=== PATIENT | female | born 1940 | race Caucasian/White ===

== ENCOUNTER 2019-06-30 05:44 | Inpatient (IN) ==
--- NOTE | 2019-06-29 10:59 | EKG Report ---
Test Performed on : 06/29/2019 10:51:07 AM Test Reason : PAT Blood Pressure : / mmHG Vent. Rate : 062 BPM Atrial Rate : 062 BPM P-R Int : 132 ms QRS Dur : 080 ms QT Int : 394 ms P-R-T Axes : 000 016 028 degrees QTc Int : 399 ms Normal sinus rhythm. Normal ECG When compared with ECG of 26-MAR-2007 10:17, No significant change was found Confirmed by Danilo AVILES, Ezekiel ([id number]) on 06/30/2019 8:32:24 AM
[2019-06-29 11:44] LABS: HEMOGLOBIN 13.3 g/dL (12.0-16.0); MCH 28.9 PG (27-31); MCHC 31.7 g/dL (33-37); MCV 91.1 FL (81-99); MPV 10.9 FL (7.4-10.4); RBC 4.61 XMIL (4.2-5.4); RDW 13.9 % (11.5-14.5); WBC 10.05 X1000 (4.8-10.8)
[2019-06-29 11:58] LABS: CALCIUM 9.6 mg/dL (8.8-10.2); POTASSIUM 4.9 mmol/L (3.5-5.1)
[2019-06-29 12:05] LABS: ALB/GLOB RATIO 2.1; ALBUMIN 4.6 g/dL (3.5-5.0); DIRECT BILIRUBIN 0.1 mg/dL (0.00-0.20); TOTAL BILIRUBIN 0.46 mg/dL (0.20-1.00); TOTAL PROTEIN 6.8 g/dL (6.3-8.3)
[2019-06-30] MEDS ORDERED: KEFZOL 1 GM/D5W 1 GM/50 ML IVPB ONE (06:13)
[2019-06-30] MEDS ORDERED: LR 1,000 ML ONE ×2 (06:13→09:29)
[2019-06-30] MEDS ORDERED: TENORMIN ONE (06:23)
[2019-06-30] MEDS ORDERED: DIPRIVAN 1% ONE (06:28)
[2019-06-30] MEDS ORDERED: FENTANYL ONE (06:29)
[2019-06-30] MEDS ORDERED: XYLOCAINE-MPF 2% ONE (06:41)
[2019-06-30] MEDS ORDERED: QUELICIN (DOSE) ONE (06:44)
[2019-06-30] MEDS ORDERED: METHYLENE BLUE 0.5% ONE (06:46)
[2019-06-30] MEDS ORDERED: MARCAINE 0.25% PF ONE (06:46)
--- NOTE | 2019-06-30 07:38 | Diag Imaging Result Doc PS360 ---
EXAM: LYMPHOSCINTIGRAPHY W/IMG 06/30/2019 HISTORY: preop TECHNIQUE: 516 uCi of technetium 99m Tilmanocept. COMMENT: There are two foci of uptake medial to the injection site posteriorly. It is likely these are in the axilla. IMPRESSION: Axillary sentinel node. Electronically signed by Delroy Granados 06/30/2019 7:36 AM
[2019-06-30] MEDS ORDERED: EPHEDRINE ONE (08:51)
[2019-06-30] MEDS ORDERED: DECADRON ONE (08:51)
[2019-06-30] MEDS ORDERED: ZOFRAN ONE (08:51)
[2019-06-30] MEDS ORDERED: ZOFRAN IV PRN (10:16)
[2019-06-30] MEDS ORDERED: DILAUDID IV PRN (10:16)
[2019-06-30] MEDS: NORCO-10 PO PRN ×2 (10:37→17:48)
[2019-06-30] MEDS: LR 1,000 ML IV SCH ×2 (10:38→23:39)
[2019-06-30] MEDS: KEFZOL 1 GM/D5W 1 GM/50 ML IVPB IV SCH ×2 (16:21→23:39)
--- NOTE | 2019-06-30 16:24 | OPERATIVE NOTE ---
PROCEDURE DATE: 06/30/2019 NAME OF PROCEDURE: 1. Right sentinel lymph node injection. 2. Sawyer lymph node biopsy x3. 3. Right total mastectomy. SURGEON: Yonas Vega MD. SECTION [employer]: Quinn Stover RN. Robbie Silva, MS-3. PREOPERATIVE DIAGNOSIS: Lobular cancer of the right breast. POSTOPERATIVE DIAGNOSIS: Lobular cancer of the right breast. The lymphoscintigram revealed a couple of lymph nodes that lit up in the axilla. DESCRIPTION OF PROCEDURE: Satisfactory general endotracheal anesthesia was achieved. We injected 5 mL of methylene blue in 1 mL aliquots in the periareolar area. We then massaged the breast for 5 minutes. The right breast and proximal arm were then prepped and draped in a sterile fashion. We marked the skin in an elliptical fashion to include the nipple areolar complex as well as the mass in the right upper medial breast. We made an extension in the axilla. We then incised the skin in the axilla and dissected down to the axillary fat. We then interrogated the axilla and identified 2 areas that were quite hot on gamma probe and radioactivity. These were both excised and sent for frozen section. We interrogated the axilla once again and no further significant activity was present. A blue node was seen and we excised it as a 3rd sentinel node and it was sent for frozen section. We then proceeded to incise the skin in the area of the ellipse. We then used our skin hooks cephalad and raised a superior flap to the pectoralis major muscle near the clavicle. We then used the skin hooks inferiorly and dissected down to the edge of the pectoralis major and the rectus muscle. We then used medium Giang retractors under both flaps and then dissected the breast off the pectoralis major from medial to lateral, leaving the fascia with the specimen. We came to the edge of the pectoralis major. We then got word that the 3 sentinel nodes were negative and we simply amputated the breast at this point. We looked at the tissue to be certain we achieved complete hemostasis, which we were satisfied with. We then placed a Caleb drain medially to go under the superior skin flap and 1 laterally to go into the axilla. These were secured to the skin with 2-0 silks. We then reapproximated the skin with edwin. Sterile dressings were applied. Negative pressure was applied to the drains to evacuate the space. She tolerated it well and was sent to the recovery room in satisfactory condition. cc: Yonas Vega MD
[2019-06-30] MEDS: BENTYL PO SCH (21:27)
[2019-06-30] MEDS: PERIDEX MT SCH (21:27)
[2019-07-01 04:12] LABS: URINE SOURCE CLEAN CATCH
[2019-07-01 04:17] LABS: BILIRUBIN URINE NEGATIVE (NEGATIVE); BLOOD URINE NEGATIVE (NEGATIVE); COLOR STRAW; GLUCOSE URINE NEGATIVE (NEGATIVE); KETONE URINE NEGATIVE (NEGATIVE); LEUKOCYTES URINE NEGATIVE (NEGATIVE); NITRITE URINE NEGATIVE (NEGATIVE); PROTEIN URINE 30 mg/dL (NEGATIVE); SP GRAVITY URINE 1.012; TURBIDITY URINE CLEAR (CLEAR); UROBILINOGEN URINE NORMAL (NORMAL)
[2019-07-01 04:19] LABS: UR EPITHELIAL CELLS <10 /HPF (<10); URINE BACTERIA NEGATIVE /HPF; URINE RBC <10 /HPF (<10); URINE WBC <10 /HPF (<10)
[2019-07-01] MEDS ORDERED: ZYRTEC PO SCH (09:00)
[2019-07-01] MEDS: BENTYL PO SCH ×2 (09:59→21:36)
[2019-07-01] MEDS: TENORMIN PO SCH (10:00)
[2019-07-01] MEDS: PERIDEX MT SCH ×2 (10:00→21:36)
[2019-07-01] MEDS: LIPITOR PO SCH (10:00)
[2019-07-01] MEDS ORDERED: SALINE LOCK IV FLUID XX ONE (13:37)
--- NOTE | 2019-07-01 23:43 | GENERAL SURGERY PROGRESS NOTE ---
DATE: 07/01/2019 SUBJECTIVE: She is postop day 1 after right total mastectomy and sentinel node biopsy. OBJECTIVE: She is afebrile. Heart rate is 50. Blood pressure 152/54. Her drainage, 1 drain has put out 45, one 40. PLAN: The plan is to discharge her home on the morning of 07/02. The medial drain may or may not be able to come out. The lateral drain she will definitely go home with. She will return to see me in the office in 1 week. Activity, wound care was discussed. Dr. Walsh will cover for me over the weekend. cc: Yonas Vega MD
[2019-07-02] MEDS: BENTYL PO SCH ×2 (07:42→08:07)
[2019-07-02] MEDS: TENORMIN PO SCH ×2 (07:43→08:07)
[2019-07-02] MEDS: LIPITOR PO SCH ×2 (07:43→08:07)
[2019-07-02 07:58] VITALS: BP 198/83
[2019-07-02] MEDS: PERIDEX MT SCH (08:04)
--- NOTE | 2019-07-02 19:37 | GENERAL SURGERY PROGRESS NOTE ---
DATE: 07/02/2019 SUBJECTIVE: Patient seems to be doing well. Her KATIE drains have had minimal output although the more lateral one seems to be having more. OBJECTIVE: Vital Signs: Patient is currently afebrile. Her vital signs stable. General: No acute distress. Cardiovascular: Regular rate and rhythm. Lungs: Grossly clear. Mastectomy site seems to be healing. KATIE drains with serosanguineous output, removed the medial drain. ASSESSMENT AND PLAN: A 79-year-old female status post right-sided mastectomy. Postoperative state. At this time she is doing well. We removed her medial drain. I think it is safe for her to go home. We will restart all her home medicines at discharge and put prescriptions in her chart. cc: MD Yonas Shaikh MD
[2019-07-06] MEDS ORDERED: FOSAMAX PO SCH (09:00)
== END 2019-07-02 08:12 | disposition home or self-care (01) | DRG 581 ==
LOC: 4N 05:44 → PAT 05:44 → OBSVTOIN 10:14
PROVIDERS: ADMIT Surgery; ATTEND Surgery